=== PATIENT | female | born 1995 | race Two or more races ===

== ENCOUNTER 2016-03-28 10:26 | Emergency (ER) | payer OTHER ==
[~2016-03-28] VITALS: Wt 69.0 kg
[~2016-03-28 10:26] MED LIST: ALBU8.5H3; ALBU8.5H3 INH; ALBU8.5H5 INH; AZIT250T94 PO; BECL8.7A INH; PRED20TA PO; PRED50TA PO
[2016-03-28] MEDS ORDERED: IPRATROPIUM (NEB) 0.5 MG/2.5 ML AMP INH STA (11:07)
[2016-03-28] MEDS ORDERED: LEVALBUTEROL (NEB) 1.25 MG/0.5 ML AMP INH STA ×2 (11:07→13:04)
[2016-03-28] MEDS ORDERED: predniSONE 20 MG TAB PO STA (11:07)
--- NOTE | 2016-03-28 11:40 | ERD ---
ER Documentation Chief Complaint Date/Time DATE: 03/28/16 TIME: 11:38 Chief Complaint WHEEZING SINCE LAST NIGHT HPI This 20-year-old female who presents to emergency department today complaining of a cough and wheezing for the past couple of days. States her inhalers not working well. States that she feels it is a change in weather and usually get sick this time year. Denies any fevers or chills or shortness of breath. ROS All systems reviewed and are negative except as per history of present illness. Medications Home Meds Active Scripts Cetirizine Hcl* (Zyrtec*) 10 Mg Capsule, 10 MG PO DAILY, #10 TAB.CHEW Prov:LORENZA NIXON PA-C 03/28/16 Prednisone* (Prednisone*) 20 Mg Tab, 40 MG PO DAILY for 4 Days, TAB Prov:LORENZA NIXON PA-C 03/28/16 Albuterol Sulfate* (Proair HFA*) 8.5 Gm Hfa.aer.ad, 2 PUFF INH Q4, #1 INHALER Prov:LORENZA NIXON PA-C 03/28/16 Albuterol Sulfate* (Proair HFA*) 8.5 Gm Hfa.aer.ad, 2 PUFF INH Q4, #1 INHALER Prov:GERRY ORTIZ PA-C 06/14/15 Prednisone* (Prednisone*) 50 Mg Tablet, 50 MG PO DAILY, #5 TAB Prov:GERRY ORTIZ PA-C 06/14/15 Prednisone* (Prednisone*) 20 Mg Tab, 40 MG PO DAILY for 4 Days, TAB Prov:CHELO AVILA PA-C 04/06/15 Albuterol Sulfate* (Proair HFA*) 8.5 Gm Hfa.aer.ad, 2 PUFF INH Q4, #1 INHALER Prov:CHELO AVILA PA-C 04/06/15 Beclomethasone Dip* (Qvar 40*) 7.3 Gm Inha, 1 PUFF INH BID, #1 INHALER Prov:CHELO AVILA PA-C 04/06/15 Albuterol Sulfate* (Albuterol Sulfate* HFA) 8.5 Gm Hfa.aer.ad, 1-2 PUFF INH Q4 Y for SHORTNESS OF BREATH, #1 EA Prov:SHERLEY HEDRICK 02/24/15 Azithromycin* (Zithromax*) 250 Mg Tablet, 250 MG PO .ZPACK DIRECTED, #6 TAB TAKE 500 MG (2 TABS) THE FIRST DAY THEN 250 MG (1 TAB) DAYS 2-5 Prov:SHERLEY HEDRICK. 02/24/15 Reported Medications Albuterol Sulfate* (Proair HFA*) 8.5 Gm Hfa.aer.ad 02/02/10 Allergies Allergies: Coded Allergies: No Known Drug Allergies (Verified Allergy, Mild, 03/28/16) PMhx/Soc History of Surgery: No Anesthesia Reaction: No Hx Neurological Disorder: No Hx Respiratory Disorders: Yes (asthma) Hx Cardiac Disorders: No Hx Psychiatric Problems: No Hx Miscellaneous Medical Probl: No Hx Alcohol Use: No Hx Substance Use: No Hx Tobacco Use: No Smoking Status: Never smoker Physical Exam Vitals Vital Signs Date Time Temp Pulse Resp B/P Pulse Ox O2 Delivery O2 Flow Rate FiO2 03/28/16 13:37 95 20 96 21 03/28/16 11:32 89 20 96 21 03/28/16 10:28 98.0 107 18 129/62 99 Physical Exam Const: No acute distress Head: Atraumatic Eyes: Normal Conjunctiva ENT: Normal External Ears, Nose and Mouth. Neck: Full range of motion..~ No meningismus. Resp: Diffuse wheezing bilaterally in all lung antunez Cardio: Regular rate and rhythm, no murmurs Abd: Soft, non tender, non distended. Normal bowel sounds Skin: No petechiae or rashes Neur: Awake and alert Psych: Normal Mood and Affect Results 24 hrs Current Medications Medications (Trade) Dose Ordered Sig/Hedy Route PRN Reason Start Time Stop Time Status Last Admin Dose Admin Levalbuterol (Xopenex Neb) 5 mg ONCE STAT INH 03/28/16 11:07 03/28/16 11:08 DC 03/28/16 11:31 Ipratropium [place] (Atrovent 0.02% (Neb)) 1 mg ONCE STAT INH 03/28/16 11:07 03/28/16 11:08 DC 03/28/16 11:31 Prednisone (Prednisone) 60 mg ONCE STAT PO 03/28/16 11:07 03/28/16 11:09 DC 03/28/16 11:17 Levalbuterol (Xopenex Neb) 1.25 mg ONCE STAT INH 03/28/16 13:04 03/28/16 13:06 DC 03/28/16 13:37 Procedures/MDM This is a 20-year-old female who Presents to emergency department today for an acute asthma exacerbation. On physical exam patient is afebrile and her oxygen saturation is 99%. She is tachycardic. Patient was given a 1 hour continuous breathing treatment given that she had diffuse wheezing bilaterally in all lung antunez. Patient had no fevers and I have low suspicion for pneumonia. Did not feel that she requires a chest x-ray. Patient was given prednisone here in the emergency department as well. Patient continued to have some wheezing on her right-sided lung antunez after 1 hour continuous bleeding treatment. She was given another breathing treatment symptoms significantly improved. Patient symptomatically felt better. Patient's symptoms at this time is consistent with acute asthma exacerbation. Low Suspicion for PE, abscess, pneumothorax, pleural effusion. She'll be given a prescription for albuterol inhaler, short course of prednisone for home as well as Zyrtec. I do not feel the patient requires antibiotics at this time. At this time the patient is stable for discharge and outpatient management. Patient should follow up with their PCP in the next 1-2 days. They may return to the emergency department sooner for any persistent or worsening of symptoms. Patient understood and agreed with the plan. Departure Diagnosis: Primary Impression: Acute asthma exacerbation Asthma severity: unspecified severity Qualified Code: J45.901 - Asthma with acute exacerbation, unspecified asthma severity Condition: Fair LORENZA NIXON PA-C Mar 28, 2016 11:40
[2016-03-28] MEDS ORDERED: ALBU8.5H3 INH (14:00)
[2016-03-28] MEDS ORDERED: PRED20TA PO (14:00)
[2016-03-28] MEDS ORDERED: CETI10CA PO (14:01)
[2016-03-28 14:12] VITALS: PULSE 92
== END 2016-03-28 14:14 | disposition home or self-care (01) ==
LOC: FTE 10:26
DX: J45.901 Unspecified asthma with (acute) exacerbation (principal)
CPT/HCPCS: 94644; 94664; J7512; Z7502; Z7610

== ENCOUNTER 2017-01-11 16:41 | Emergency (ER) | payer OTHER ==
[~2017-01-11] VITALS: Ht 154.9 cm; Wt 60.2 kg
[~2017-01-11 16:41] MED LIST changes: +CETI10CA PO
[2017-01-11 17:04] VITALS: Ht 154.9 cm; Wt 60.2 kg
[2017-01-11] MEDS ORDERED: ALBUTEROL 0.083% (NEB) 2.5 MG/3 ML AMP HHN STA (18:49)
[2017-01-11] MEDS ORDERED: IPRATROPIUM (NEB) 0.5 MG/2.5 ML AMP HHN ONE (19:00)
--- NOTE | 2017-01-11 19:30 | ERD ---
ER Documentation Chief Complaint Chief Complaint sob with wheezing x 1 day; HPI This is a 21-year-old female presents to the ER with shortness of breath and wheezing that started yesterday. Patient has had a cough for the last 3 days. She is currently 26 weeks . She denies any vaginal bleeding, pelvic pain, urinary frequency or dysuria. Patient has been taking her albuterol inhaler at home, however has not been working. She denies any chest pain. She denies any fevers or chills. ROS 12 point review of systems was done, all negative except per HPI. Medications Home Meds Active Scripts Prednisone (Prednisone) 20 Mg Tab, 40 MG PO QHS for 5 Days, TAB Prov:REINA OCHOA 01/11/17 Cetirizine Hcl* (Zyrtec*) 10 Mg Capsule, 10 MG PO DAILY, #10 TAB.CHEW Prov:LORENZA NIXON PA-C 03/28/16 Prednisone* (Prednisone*) 20 Mg Tab, 40 MG PO DAILY for 4 Days, TAB Prov:LORENZA NIXON PA-C 03/28/16 Albuterol Sulfate* (Proair HFA*) 8.5 Gm Hfa.aer.ad, 2 PUFF INH Q4, #1 INHALER Prov:LORENZA NIXON PA-C 03/28/16 Albuterol Sulfate* (Proair HFA*) 8.5 Gm Hfa.aer.ad, 2 PUFF INH Q4, #1 INHALER Prov:GERRY ORTIZ PA-C 06/14/15 Prednisone* (Prednisone*) 50 Mg Tablet, 50 MG PO DAILY, #5 TAB Prov:GERRY ORTIZ PA-C 06/14/15 Prednisone* (Prednisone*) 20 Mg Tab, 40 MG PO DAILY for 4 Days, TAB Prov:CHELO AVILA PA-C 04/06/15 Albuterol Sulfate* (Proair HFA*) 8.5 Gm Hfa.aer.ad, 2 PUFF INH Q4, #1 INHALER Prov:CHELO AVILA PA-C 04/06/15 Beclomethasone Dip* (Qvar 40*) 7.3 Gm Inha, 1 PUFF INH BID, #1 INHALER Prov:CHELO AVILA PA-C 04/06/15 Albuterol Sulfate* (Albuterol Sulfate* HFA) 8.5 Gm Hfa.aer.ad, 1-2 PUFF INH Q4 Y for SHORTNESS OF BREATH, #1 EA Prov:SHERLEY HEDRICK. 02/24/15 Azithromycin* (Zithromax*) 250 Mg Tablet, 250 MG PO .ZPACK DIRECTED, #6 TAB TAKE 500 MG (2 TABS) THE FIRST DAY THEN 250 MG (1 TAB) DAYS 2-5 Prov:SHERLEY HEDRICK. 02/24/15 Reported Medications Albuterol Sulfate* (Proair HFA*) 8.5 Gm Hfa.aer.ad 02/02/10 Allergies Allergies: Coded Allergies: No Known Drug Allergies (Verified Allergy, Mild, 03/28/16) PMhx/Soc Medical and Surgical Hx: pt denies Surgical Hx History of Surgery: No Anesthesia Reaction: No Hx Neurological Disorder: No Hx Respiratory Disorders: Yes (asthma) Hx Cardiac Disorders: No Hx Psychiatric Problems: No Hx Miscellaneous Medical Probl: No Hx Alcohol Use: No Hx Substance Use: No Hx Tobacco Use: No Smoking Status: Never smoker Physical Exam Vitals Vital Signs Date Time Temp Pulse Resp B/P Pulse Ox O2 Delivery O2 Flow Rate FiO2 01/11/17 19:27 88 24 98 21 01/11/17 17:04 98.4 92 18 113/67 98 Physical Exam GENERAL: The patient is well-developed, well-nourished, in no acute distress. NECK: Cervical spine is non tender with no step off. Supple, no nuchal rigidity HEENT: Atraumatic. Pupils equal, round and reactive to light. Extraocular muscles are grossly intact. Conjunctivae pink, no discharge. Bilateral tympanic membranes are clear with no evidence of erythema, effusion or dulling of the light reflex. Tonsilar erythema with no exudates or uvular deviation. Clear rhinorrhea. RESPIRATORY: No rales, crackles. Patient has expiratory wheezing in all lung antunez. No accessory muscle use. HEART: Regular rate and rhythm. No murmurs, clicks, rubs or gallops. EXTREMITIES: No clubbing or cyanosis. Full range of motion. Grossly neurovascularly intact. NEUROLOGIC: Alert and oriented. Cranial nerves II through XII are intact. SKIN: There is no rash. The skin is warm and dry. Results 24 hrs Current Medications Medications (Trade) Dose Ordered Sig/Hedy Route PRN Reason Start Time Stop Time Status Last Admin Dose Admin Albuterol (Proventil 0.083% (Neb)) 10 mg ONCE STAT [facility] 01/11/17 18:49 01/11/17 18:51 DC 01/11/17 19:26 Ipratropium [place] (Atrovent 0.02% (Neb)) 0.5 mg ONCE ONCE N 01/11/17 19:00 01/11/17 19:01 DC 01/11/17 19:26 Procedures/MDM This is a 21-year-old female presents to the ER with wheezing that started yesterday. Patient was given an hour-long ablation treatment in the ER with albuterol and Atrovent. Upon examination patient felt significantly better. Patient will be sent home with a short course of steroids. I contacted OB mohs surgeon/general dermatologist Dr. Magallon, acute exam medical decision making. Patient is to follow-up with her primary care doctor within 1-2 days or return to ER sooner if symptoms worsen. My medical decision making shared with the patient she understands and agrees with plan. Departure Diagnosis: Primary Impression: Acute asthma exacerbation Condition: Stable REINA OCHOA Jan 11, 2017 19:30
[2017-01-11] MEDS ORDERED: PRED20TA PO (20:11)
[2017-01-11] MEDS ORDERED: ALBU8.5H3 INH (20:36)
[2017-01-11 20:38] VITALS: BP 116/60; PULSE 114; RESP 20
== END 2017-01-11 20:39 | disposition home or self-care (01) ==
LOC: FTE 16:41
DX: J45.901 Unspecified asthma with (acute) exacerbation (principal)
CPT/HCPCS: 94644; Z7502; Z7610

== ENCOUNTER 2017-02-11 20:47 | Outpatient (CLI) | payer OTHER ==
[~2017-02-11] VITALS: Ht 154.9 cm; Wt 62.2 kg
[2017-02-11 20:51] VITALS: Ht 154.9 cm; Wt 62.2 kg
[2017-02-11] MEDS ORDERED: PREN-6 PO (20:53)
[2017-02-11] MEDS ORDERED: FERR256T PO (20:53)
--- NOTE | 2017-02-11 23:52 | PN ---
Triage Information Date/Time 02/11/1710/21/2344 Reason for visit: constipation Weeks of Gestation 31w /Para A1(iab) Diabetes: none Hypertention: none Objective Heart Rate: 140's Contractions: None Disposition: Discharge Assessment/Plan [id number] constipation?(had bm this am) plan discharge home with instructions of natural was such as prune juice (warm) high fiber with increase water intake DEE NAQVI MD Feb 11, 2017 23:52
--- NOTE | 2017-02-12 01:59 | TRIAGE ---
OB Triage Datetime Report Generated by CPN: 02/12/2017 01:59 Datetime: 02/11/2017 21:36 Stage of : OB Triage Labor Evaluation Frequency: X1 Monitor Mode: External Duration (sec)2399: 50 Quality: Mild Pattern: Normal: <= 5 Contractions in 10 Minutes Resting Tone [place]: Relaxed Heart Rate FHR Baseline Rate: 140 Monitor Mode: External US Variability: Moderate 6-25 bpm Accelerations: 15X15 Decelerations: None Category: Category I Datetime: 02/11/2017 21:03 Time of Arrival: 02/11/2017 20:40 EGA: 31.0 Arrived By: Wheelchair Arrived From: Home Chief Complaint: NO BM SINCE THIS AM PER PT. SHE IS CONSTIPATED Movement: Present Contractions: Denies/Absent Rupture of Membranes: Denies Vaginal Bleeding: None Vaginal Discharge: Denies Time Provider Notified: 02/11/2017 21:10 Provider Notified: DRISS Initial Plan: EFM, ASSESSMENT, CALL MD FOR ORDERS Datetime: 02/11/2017 21:00 Assessment Type: Triage Maternal Assessment Level of Consciousness: Fully Conscious DTR's/Clonus: DTRs 2+; No Clonus Headache: Denies Blurred Vision: No Respiratory Effort: Unlabored; Regular Rhythm; Equal Expansion Breath Sounds, Left: Clear and Equal Breath Sounds, Right: Clear and Equal Nausea/Vomiting: Denies RUQ Epigastric Pain: Denies Lower Extremities Edema: None Upper Extremities Edema: None Facial Edema: None Fall Risk Assessment History of Falling: (0) No Secondary Diagnosis: (0) No Ambulatory Aid: (0) Bedrest/Nurse Assist IV Therapy: (0) No Gait: (0) Normal/Bedrest/Immobile Mental Status: (0) Oriented to Own Ability Fall Score: 0 Fall Risk Score Definition: No Risk: No action required
== END 2017-02-11 21:40 | disposition home or self-care (01) ==
LOC: OBT 20:47 → L-D 20:48 → OBT 21:40
PROVIDERS: ATTEND Obstetrics & Gynecology
DX: O26.893 Other specified pregnancy related conditions, third trimester (principal); Z3A.31 31 weeks gestation of pregnancy; K59.00 Constipation, unspecified
CPT/HCPCS: G0463

== ENCOUNTER 2018-12-25 17:12 | Outpatient (CLI) | payer OTHER ==
[~2018-12-25] VITALS: Ht 157.5 cm; Wt 62.7 kg
[~2018-12-25 17:12] MED LIST changes: +ALBU18HF INHALATION; -ALBU8.5H3; -ALBU8.5H3 INH; +ALBU8.5H8 INH; -AZIT250T94 PO; -BECL8.7A INH; +CEPH500C PO; +FERR256T PO; +INHA1EAC MC; -PRED50TA PO; +PREN-6 PO
[2018-12-25 17:38] VITALS: BP 119/64; PULSE 98; RESP 18
== END 2018-12-25 21:45 | disposition home or self-care (01) ==
LOC: OBT 17:12 → L-D 17:13 → OBT 21:45
PROVIDERS: ATTEND Specialist
DX: O99.513 Diseases of the respiratory system complicating pregnancy, third trimester (principal); Z3A.34 34 weeks gestation of pregnancy; J45.901 Unspecified asthma with (acute) exacerbation
CPT/HCPCS: 76818; Z7500; G0463